=== PATIENT | female | born 1995 | race Caucasian/White ===

== ENCOUNTER 2020-08-27 12:41 | Emergency (ER) | payer MEDICAID ==
[~2020-08-27] VITALS: Ht 154.9 cm; Wt 54.4 kg
[2020-08-27 12:55] VITALS: Ht 154.9 cm; Wt 54.4 kg
[2020-08-27 15:10] VITALS: BP 120/83
== END 2020-08-27 15:00 | disposition home or self-care (01) ==
LOC: ED 12:41
DX: L60.0 Ingrowing nail (principal)
CPT/HCPCS: J2001